=== PATIENT | male | born 1995 | race Caucasian/White ===

== ENCOUNTER 2022-03-06 11:58 | Emergency (ER) | payer OTHER ==
--- NOTE | 2022-03-06 12:00 | NUR ---
Private auto dropped pt off at ambulance bay area stating he had "spasms." HAND ASSEMBLER assisted pt into wheelchair and took to registration area per wire charger instruction. general ledger accountant went to waiting area to attempt to get triage completed. Pt was sitting in wheelchair screaming "I can't fuckin breathe! My legs are fuckin numb, I can't feel nothin, I'M IN PAIN, I DON'T WANNA fuckin TALK FOR 30 MINUTES." Mother stated "Why are you interrogating him?" general ledger accountant called security as pt's behavior escalated. Pt proceeded to get out of wheelchair and forcefully open and walk through doors. Security responded to de-escalate pt. Pt walked out of hospital. Dr Freed informed.
== END 2022-03-06 12:00 | disposition left against medical advice (07) ==
LOC: SED 11:58
DX: E86.0 Dehydration (principal); M54.9 Dorsalgia, unspecified; R55 Syncope and collapse; Z53.21 Procedure and treatment not carried out due to patient leaving prior to being seen by health care provider